=== PATIENT | female | born 1935 | race Caucasian/White ===

== ENCOUNTER → 2017-01-12 | Outpatient (CLI) | payer MEDICARE ==
[2017-01-12 08:48] LABS: CH 30.6; CHCM 33.1; HCT 48.4 % (34.0-46.0); HGB 15.5 gm/dL (11.4-16.0); MCH 29.8 pg (25.0-35.0); MCHC 32.1 g/dL (31.0-37.0); Mean Platelet Volume 7.3; RDW 14.7 % (11.5-15.5); WBC 6.6 k/uL (3.8-10.6)
[2017-01-12 09:10] LABS: ALT 33 U/L (9-52); AST 26 U/L (14-36); Alkaline Phosphatase 59 U/L (38-126); Anion Gap 7 mmol/L; Blood Urea Nitrogen 21 mg/dL (7-17); Calcium 9.3 mg/dL (8.4-10.2); Carbon Dioxide 31 mmol/L (22-30); Chloride 103 mmol/L (98-107); Cholesterol 169 mg/dL (<200); Glucose 99 mg/dL (74-99); HDL Cholesterol 67 mg/dL (40-60); Non-African American GFR(MDRD) >60 (>60 ml/min/1.73 sqM); Potassium 4.4 mmol/L (3.5-5.1); Sodium 141 mmol/L (137-145); Total Bilirubin 0.8 mg/dL (0.2-1.3); Total Protein 6.6 g/dL (6.3-8.2)
== END | disposition home or self-care (01) ==
LOC: LABWHC1 08:19
PROVIDERS: ATTEND Internal Medicine Cardiovascular Disease
DX: I10 Essential (primary) hypertension (principal); E78.5 Hyperlipidemia, unspecified; Z95.2 Presence of prosthetic heart valve
CPT/HCPCS: 36415; 80053; 80061; 84443; 85027

== ENCOUNTER → 2017-12-28 | Outpatient (CLI) | payer MEDICARE ==
[2017-12-28 09:39] LABS: HCT 49.3 % (34.0-46.0); MCH 28.4 pg (25.0-35.0); MCHC 30.4 g/dL (31.0-37.0); MCV 93.4 fL (80.0-100.0); Mean Platelet Volume 6.8; Platelet Count 275 k/uL (150-450); RBC 5.29 m/uL (3.80-5.40); RDW 13.7 % (11.5-15.5); WBC 6.3 k/uL (3.8-10.6)
[2017-12-28 09:59] LABS: ALT 26 U/L (9-52); AST 26 U/L (14-36); Anion Gap 6 mmol/L; Blood Urea Nitrogen 17 mg/dL (7-17); Calcium 9.1 mg/dL (8.4-10.2); Carbon Dioxide 32 mmol/L (22-30); Chloride 102 mmol/L (98-107); Cholesterol 177 mg/dL (<200); Glucose 97 mg/dL (74-99); HDL Cholesterol 56 mg/dL (40-60); LDL Cholesterol,Calculated 90 mg/dL (0-99); Potassium 4.7 mmol/L (3.5-5.1); Sodium 140 mmol/L (137-145); Triglycerides 153 mg/dL (<150)
== END | disposition home or self-care (01) ==
LOC: LABWHC1 08:15
PROVIDERS: ATTEND Internal Medicine Cardiovascular Disease
DX: E78.5 Hyperlipidemia, unspecified (principal); R53.83 Other fatigue; I10 Essential (primary) hypertension
CPT/HCPCS: 36415; 80048; 80061; 84443; 84450; 84460; 85027

== ENCOUNTER 2022-07-09 23:43 | Inpatient (IN) | payer MEDICARE ==
[2022-07-10 00:13] LABS: HCT 40.3 % (34.0-46.0); HGB 13.8 gm/dL (11.4-16.0); MCH 29.9 pg (25.0-35.0); MCHC 34.3 g/dL (31.0-37.0); MCV 87.1 fL (80.0-100.0); Mean Platelet Volume 7.2; Platelet Count 152 k/uL (150-450); RBC 4.63 m/uL (3.80-5.40); RDW 15.8 % (11.5-15.5); WBC 10.7 k/uL (3.8-10.6)
[2022-07-10 00:31] LABS: ALT 21 U/L (4-34); AST 26 U/L (14-36); African American GFR (CKD) >90 (>60 ml/min/1.73 sqM); Albumin 3.3 g/dL (3.5-5.0); Alkaline Phosphatase 56 U/L (38-126); Anion Gap 8 mmol/L; Blood Urea Nitrogen 20 mg/dL (7-17); Calcium 8.2 mg/dL (8.4-10.2); Carbon Dioxide 25 mmol/L (22-30); Chloride 98 mmol/L (98-107); Glucose 103 mg/dL (74-99); Lipase 38 U/L (23-300); Magnesium 1.5 mg/dL (1.6-2.3); Non-African American GFR(CKD) 79 (>60 ml/min/1.73 sqM); Potassium 3.4 mmol/L (3.5-5.1); Sodium 131 mmol/L (137-145); Total Bilirubin 1.2 mg/dL (0.2-1.3); Total Protein 5.6 g/dL (6.3-8.2)
--- NOTE | 2022-07-10 00:31 | CT ---
EXAMINATION TYPE: CT brain wo con CT DLP: 1143.1 mGycm, Automated exposure control for dose reduction was used. DATE OF EXAM: 07/10/2022 12:21 AM COMPARISON: 04/09/2010. CLINICAL INDICATION:Female, 86 years old with history of Syncope, SYNCOPE TECHNIQUE: Brain: Axial CT images of the brain were obtained with coronal and sagittal reformats created and rev iewed. Contrast used: None. Oral contrast used: None. FINDINGS: Brain: Extra-axial spaces: No abnormal extra-axial fluid collections. Ventricular system: Dilatation in proportion to cerebral atrophy. Cerebral parenchyma: Cerebral atrophy. No acute intraparenchymal hemorrhage or mass effect. The [place] -white junction is well differentiated. Scattered hypoattenuating areas are seen within the white mat ter. Cerebellum: Unremarkable. Mass effect: No evidence of midline shift. Intracranial vasculature: Atherosclerotic calcifications of the intracranial vessels. Soft tissues: Normal. Calvarium/osseous structures: No depressed skull fracture. Paranasal sinuses and mastoid air cells: Mild scattered paranasal sinus disease. Visualized orbits: Bilateral aphakia IMPRESSION: 1. No acute intracranial process. 2. Nonspecific white matter changes, likely secondary to chronic small vessel ischemic disease.
--- NOTE | 2022-07-10 00:33 | XR ---
EXAMINATION TYPE: XR chest 1V portable DATE OF EXAM: 07/10/2022 12:21 AM COMPARISON: CT 03/30/2015. 04/16/2015 radiograph TECHNIQUE: XR chest 1V portable Frontal view of the chest. CLINICAL INDICATION:Female, 86 years old with history of Syncope; FINDINGS: Lungs/Pleura: There is no evidence of pleural effusion, focal consolidation, or pneumothorax. Pulmonary vascularity: Unremarkable. Heart/mediastinum: Cardiomediastinal silhouette is unremarkable. Two lead cardiac conduction device o verlying the left hemithorax with lead tips projecting over the right ventricle and right atrium. Pro minent mediastinum compatible with prior CT findings of ascending and descending thoracic aorta promi nence. This is increased size from 2016. Some of this change may be due to technique. Musculoskeletal: No acute osseous pathology. Midline sternotomy wires are noted. IMPRESSION: 1. No acute cardiopulmonary disease/process. 2. Prominent mediastinum which has increased from 2016.
[2022-07-10 00:41] LABS: Band Neutrophils % 21 %; Monocytes # (M) 0.11 k/uL (0-1.0); Neutrophils % (M) 78 %; Nucleated Red Blood Cells 0 /100 WBC (0-0); Total Cells Counted 200
[2022-07-10 00:42] LABS: Hypersegmented Neutrophils Present
[2022-07-10 00:43] LABS: INR 1.1 (<1.2); Partial Thromboplastin Time 21.5 sec (22.0-30.0); Prothrombin Time 11.8 sec (9.0-12.0)
[2022-07-10] MEDS ORDERED: diphenhydrAMINE 50 MG/ML 1 ML VIAL IVP STA (00:46)
[2022-07-10] MEDS ORDERED: methylPREDNISolone SOD SUCCIN 125 MG in SODIUM CHLORIDE 0.9% 100 ML IVPB STA (00:46)
[2022-07-10] MEDS ORDERED: methylPREDNISolone SOD SUCCI 125 MG/2 ML VIAL IV STA (00:49)
--- NOTE | 2022-07-10 02:55 | CT ---
EXAM: CT Angiography Chest With Intravenous Contrast CLINICAL HISTORY: ITS.REASON CT Reason: SOB, r/o PE TECHNIQUE: Axial computed tomographic angiography images of the chest with intravenous contrast. CTDI is 27.47 mGy and DLP is 301.4 mGy-cm. This CT exam was performed using one or more of the following dose reduction techniques: automated exposure control, adjustment of the mA and/or kV according to patient size, and/or use of iterative reconstruction technique. MIP reconstructed images were created and reviewed. COMPARISON: CTA chest of 03/30/2015 FINDINGS: Pulmonary arteries: Unremarkable. No CT evidence of pulmonary embolism. Aorta: There is a dissection of the descending thoracic aorta with displacement of intimal calcifications. The dissection ends in the distal descending thoracic aorta without extension to involve the abdominal aorta. The false lumen is thrombosed. There is atherosclerotic disease within the true lumen of the descending thoracic aorta. There is aneurysmal dilatation of the false and true lumens of the descending thoracic aorta measuring up to 6.5 cm combined. There is a distal ascending aortic aneurysm measuring up to 6.6 cm. There is an acute kink between the aortic arch and the ascending thoracic aorta. No evidence of ascending thoracic dissection. The proximal descending aorta just distal to the left subclavian artery measures up to 3.9 cm. 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 Lungs: Unremarkable. No mass. No consolidation. Pleural space: Unremarkable. No significant effusion. No pneumothorax. Heart: Unremarkable. No cardiomegaly. No significant pericardial effusion. No evidence of RV dysfunction. Bones/joints: No acute fracture. No dislocation. Soft tissues: Unremarkable. Lymph nodes: Unremarkable. No enlarged lymph nodes. IMPRESSION: 1. 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 The false lumen is thrombosed. The true and false lumen together are dilated measuring up to 6.5 cm transverse combined. 2. Aneurysmal dilatation of the distal ascending thoracic aorta and aortic arch measuring up to 6.6 cm with an acute kink. No evidence of ascending thoracic aortic dissection. 3. No evidence of pulmonary embolism. 4. 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 Discussed with Dr. Westbrook on 07/10 02:54 (-04:00) <MYCVCSECTION> Communications: 07/10/22 02:28 Call Doctor Regarding Aortic Dissection, called Dr. Alicea on 07/10 02:28 (-04:00)
[2022-07-10 03:08] LABS: Appearance,Urine Cloudy (Clear); Bacteria,Urine Rare /hpf; Bilirubin,Urine Negative (Negative); Blood,Urine Moderate (Negative); Color,Urine Yellow; Glucose,Urine (UA) Negative (Negative); Hyaline Casts,Urine 4 /lpf (0-2); Ketones,Urine 1+ (Negative); Leukocyte Esterase,Urine Large (Negative); Mucus,Urine Rare /hpf; Nitrite,Urine Negative (Negative); PH, Urine 5.5 (5.0-8.0); Protein,Urine Trace (Negative); RBC,Urine 18 /hpf (0-5); Specific Gravity,Urine 1.032 (1.001-1.035); Squamous Epithelial Cell,Urine 8 /hpf (0-4); Urobilinogen,Urine <2.0 mg/dL (<2.0); WBC,Urine 146 /hpf (0-5)
--- NOTE | 2022-07-10 05:00 | ED ---
General Adult HPI - General Chief complaint: Recheck/Abnormal Lab/Rx Stated complaint: Syncope Time Seen by Provider: 07/09/22 23:52 Source: patient Mode of arrival: EMS Limitations: no limitations - History of Present Illness Initial comments: This is an 86-year-old female with a past medical history including hypertension, hyperlipidemia and previous aortic aneurysm repair presented to the emergency department for a syncopal episode via EMS. It was reported the patient was at home and had a syncopal episode and was found to be hypotensive by EMS. On arrival, the patient was alert, ANO 4 and did not complain of any other acute pain or complaints. It was reported that the patient did start taking Flomax for a reported kidney stone and had a syncopal episode after taking this medication. The patient denied any acute pain or distress currently and denied any symptoms. The patient denied any lightheadedness or dizziness. The patient did state that she felt slightly flushed prior to the syncopal episode at home. The patient was resting in bed comfortably and denied any nausea, vomiting, fevers and chills. - Related Data Home Medications Medication Instructions Recorded Confirmed Aspirin 1 tab PO DAILY 03/30/15 03/30/15 Calcium Carbonate/Vitamin D3 2 each PO DAILY 03/30/15 03/30/15 [Calcium 600 + Vit D Tablet] Losartan [Cozaar] 1 tab PO DAILY 03/30/15 03/30/15 Multivitamins, Thera [Theragran] 1 each PO DAILY 03/30/15 03/30/15 Simvastatin [Zocor] 1 tab PO DAILY 03/30/15 03/30/15 Sotalol [Betapace] 1 tab PO DAILY 03/30/15 03/30/15 Zolpidem [Ambien] 1 tab PO DAILY 03/30/15 03/30/15 Allergies Allergy/AdvReac Type Severity Reaction Status Date / Time Iodinated Contrast Media Allergy Rash/Hives Verified 03/30/15 05:48 [Iodinated Contrast Media - IV Dye] Review of Systems ROS Statement: Those systems with pertinent positive or pertinent negative responses have been documented in the HPI. ROS Other: All systems not noted in ROS Statement are negative. Past Medical History Past Medical History: Hyperlipidemia, Hypertension History of Any Multi-Drug Resistant Organisms: None Reported Past Surgical History: Appendectomy, Coronary Bypass/CABG, Hysterectomy, Pacemaker, Tonsillectomy Past Psychological History: No Psychological Hx Reported Smoking Status: Never smoker Past Alcohol Use History: None Reported Past Drug Use History: None Reported General Exam Limitations: no limitations General appearance: alert, in no apparent distress Head exam: Present: atraumatic, normocephalic, normal inspection Eye exam: Present: normal appearance, PERRL Pupils: Present: normal accommodation ENT exam: Present: normal exam, normal oropharynx, mucous membranes moist Neck exam: Present: normal inspection, full ROM Respiratory exam: Present: normal lung sounds bilaterally Cardiovascular Exam: Present: regular rate, normal rhythm, normal heart sounds GI/Abdominal exam: Present: soft, normal bowel sounds Extremities exam: Present: normal inspection, full ROM Back exam: Present: normal inspection, full ROM Neurological exam: Present: alert, oriented X3, CN II-XII intact Psychiatric exam: Present: normal affect, normal mood Skin exam: Present: warm, dry Course Vital Signs 07/09/22 07/10/22 07/10/22 23:46 00:00 00:34 Temperature 98.4 F Pulse Rate 83 Respiratory 18 Rate Blood Pressure 87/65 97/65 109/72 O2 Sat by Pulse 96 Oximetry 07/10/22 07/10/22 07/10/22 00:59 01:46 02:00 Temperature Pulse Rate Respiratory Rate Blood Pressure 105/71 107/73 101/73 O2 Sat by Pulse Oximetry 07/10/22 07/10/22 07/10/22 02:03 02:45 03:15 Temperature Pulse Rate 72 78 73 Respiratory 16 18 18 Rate Blood Pressure 120/74 123/73 O2 Sat by Pulse 98 96 98 Oximetry 07/10/22 07/10/22 05:00 06:15 Temperature Pulse Rate 76 60 Respiratory 16 16 Rate Blood Pressure 116/79 117/90 O2 Sat by Pulse 96 95 Oximetry EKG Findings - EKG Comments: EKG Findings:: In EKG was obtained and was interpreted by myself showing a rate of 85, QRS duration of 189 and QTC of 537. This EKG shows electronically ventricularly paced rhythm. There was however no ST segment elevation or depression noted. Medical Decision Making - Medical Decision Making Was pt. sent in by a medical professional or institution (, PA, LOCAL SUPERINTENDENT, urgent care, hospital, or group home...) When possible be specific @ -No Did you speak to anyone other than the patient for history (EMS, parent, family, police, friend...)? What history was obtained from this source @ -Yes, patient's daughter and EMS that confirmed the patient's history and syncopal episode. Did you review nursing and triage notes (agree or disagree)? Why? @ -I reviewed and agree with nursing and triage notes Were old charts reviewed (outside hosp., previous admission, EMS record, old EKG, old radiological studies, urgent care reports/EKG's, group home records)? Report findings @ -No old charts were reviewed Differential Diagnosis (chest pain, altered mental status, abdominal pain women, abdominal pain men, vaginal bleeding, weakness, fever, dyspnea, syncope, headache, dizziness, GI bleed, back pain, seizure, CVA, palpatations, mental health)? @ -ACS, PE, pneumonia, URI EKG interpreted by me (3pts min.). @ -As above X-rays interpreted by me (1pt min.). @ -Chest x-ray was obtained and was interpreted by myself showing no acute cardiopulmonary process however there is a prominent mediastinum which was increased from 2016. CT interpreted by me (1pt min.). @ -Head CT was initially obtained due to the patient's syncopal episode and was interpreted by myself showing no acute intracranial process. There was nonspecific white matter changes likely secondary to chronic small vessel ischemic disease. Due to the patient's elevated d-dimer level, a CTA of the chest was obtained. CT of the chest was reviewed and interpreted by myself showing a descending thoracic aortic dissection with a false lumen thrombosed. The true and false lumen together are dilated measuring up to 6.5 cm. There was also an aneurysmal dilated patient of the distal ascending thoracic aorta and aortic arch measuring up to 6.6 cm. There was no evidence of ascending thoracic aortic dissection. There was no PE. U/S interpreted by me (1pt. min.). @ -None done What testing was considered but not performed or refused? (CT, X-rays, U/S, labs)? Why? @ -None What meds were considered but not given or refused? Why? @ -None Did you discuss the management of the patient with other professionals (professionals i.e. , PA, LOCAL SUPERINTENDENT, lab, RT, psych nurse, web content & social media manager, cork painter and grader, teacher, chairman president and chief executive officer, case coordinator)? Give summary @ -Yes, multiple physicians were contacted. Please see the below hospital course for details. Was smoking cessation discussed for >3mins.? @ -No Was critical care preformed (if so, how long)? @ -Yes, see above Were there social determinants of health that impacted care today? How? (Homelessness, low income, unemployed, alcoholism, drug addiction, transportation, low edu. Level, literacy, decrease access to med. care, senior living, rehab)? @ -No Was there de-escalation of care discussed even if they declined (Discuss DNR or withdrawal of care, Hospice)? DNR status @ -No What co-morbidities impacted this encounter? (DM, HTN, Smoking, COPD, CAD, C ancer, CVA, ARF, Chemo, Hep., AIDS, mental health diagnosis, sleep apnea, morbid obesity)? @ -Hypertension, hyperlipidemia and previous aortic aneurysm with repair Was patient admitted / discharged? Hospital course, mention meds given and route, prescriptions, significant lab abnormalities, going to OR and other pertinent info. @ -The patient was seen and evaluated in the emergency department. On evaluation, the patient was resting in bed without any acute distress. Vital signs on admission were stable. The patient did have mild hypotension on arrival but responded well to 500 mL of IV fluids. The patient continued to remain stable. Laboratory workup was obtained that showed a significant elevation of the d-dimer at 19 and therefore a CTA of the chest was ordered. Urinalysis was consistent with a UTI and blood consistent with the patient's already confirmed kidney stone. The CT of the chest showed significant findings including a descending thoracic aortic dissection that measured up to 6.5 cm and was thrombosed. An ascending aortic aneurysm was also noted 6.600 m. Due to this, vascular surgery was contacted and Dr. Wolff stated that the patient would need to be transferred. Due to this, transfer was initiated. The patient was denied from [facility] as well as [facility] due to capacity. The [facility] was contacted and I did speak to Dr. Ballesteros and Dr. Tena regarding the patient. I did send the images to the cardiac thoracic surgeon at the [facility]. He reviewed them and stated that the patient due to her age was not a surgical candidate and would instead recommend medical management. He did state that there was no need to transfer the patient at this time. The patient and her family were told of this but did state that her excavator backhoe operator was at [facility] and did request to be transferred there. Phone calls were made to transfer the patient to [facility] however it was stated that because the patient does have a known dissection, the patient is an automatic denial as [facility] could not accept any patient with a dissection regardless of the type. The patient's family was again told of this and they were agreeable to staying here and be admitted for medical management with cardiology on consult. The patient's blood pressure remain stable did not require any doses of blood pressure medications. The patient was admitted in stable condition with cardiology on consult. Undiagnosed new problem with uncertain prognosis? @ -No Drug Therapy requiring intensive monitoring for toxicity (Heparin, Nitro, Insulin, Cardizem)? @ -No Were any procedures done? @ -No Diagnosis/symptom? @ -Descending thoracic aortic dissection, ascending thoracic aortic aneurysm, medical management Acute, or Chronic, or Acute on Chronic? @ -Acute on chronic Uncomplicated (without systemic symptoms) or Complicated (systemic symptoms)? @ -Complicated Side effects of treatment? @ -No Exacerbation, Progression, or Severe Exacerbation? @ -No Poses a threat to life or bodily function? How? (Chest pain, [place], [place], pneumonia, PE, COPD, DKA, ARF, appy, cholecystitis, CVA, Diverticulitis, Homicidal, Suicidal, threat to staff... and all critical care pts) @ -Yes, dissection and aneurysm can lead to rupture and immediate . - Lab Data Result diagrams: 07/09/22 23:59 07/09/22 23:59 Lab Results 07/09/22 07/09/22 07/09/22 Range/Units 23:59 23:59 23:59 WBC 10.7 H (3.8-10.6) k/uL RBC 4.63 (3.80-5.40) m/uL Hgb 13.8 (11.4-16.0) gm/dL Hct 40.3 (34.0-46.0) % MCV 87.1 (80.0-100.0) fL MCH 29.9 (25.0-35.0) pg MCHC 34.3 (31.0-37.0) g/dL RDW 15.8 H (11.5-15.5) % Plt Count 152 (150-450) k/uL MPV 7.2 Neutrophils % (Manual) 78 % Band Neuts % (Manual) 21 % Monocytes % (Manual) 1 % Neutrophils # (Manual) 10.50 H (1.3-7.7) k/uL Monocytes # (Manual) 0.11 (0-1.0) k/uL Nucleated RBCs 0 (0-0) /100 WBC Manual Slide Review Performed Hypersegmented Neuts Present PT 11.8 (9.0-12.0) sec INR 1.1 (<1.2) APTT 21.5 L (22.0-30.0) sec D-Dimer 19.25 H (<0.60) mg/L FEU Sodium 131 L (137-145) mmol/L Potassium 3.4 L (3.5-5.1) mmol/L Chloride 98 (98-107) mmol/L Carbon Dioxide 25 (22-30) mmol/L Anion Gap 8 mmol/L BUN 20 H (7-17) mg/dL Creatinine 0.68 (0.52-1.04) mg/dL Est GFR (CKD-EPI)AfAm >90 (>60 ml/min/1.73 sqM) Est GFR (CKD-EPI)NonAf 79 (>60 ml/min/1.73 sqM) Glucose 103 H (74-99) mg/dL Calcium 8.2 L (8.4-10.2) mg/dL Magnesium 1.5 L (1.6-2.3) mg/dL Total Bilirubin 1.2 (0.2-1.3) mg/dL AST 26 (14-36) U/L ALT 21 (4-34) U/L Alkaline Phosphatase 56 (38-126) U/L Troponin I (0.000-0.034) ng/mL Total Protein 5.6 L (6.3-8.2) g/dL Albumin 3.3 L (3.5-5.0) g/dL Lipase 38 (23-300) U/L Urine Color Urine Appearance (Clear) Urine pH (5.0-8.0) Ur Specific [place] (1.001-1.035) Urine Protein (Negative) Urine Glucose (UA) (Negative) Urine Ketones (Negative) Urine Blood (Negative) Urine Nitrite (Negative) Urine Bilirubin (Negative) Urine Urobilinogen (<2.0) mg/dL Ur Leukocyte Esterase (Negative) Urine RBC (0-5) /hpf Urine WBC (0-5) /hpf Urine WBC Clumps (None) /hpf Ur Squamous Epith Cells (0-4) /hpf Urine Bacteria (None) /hpf Hyaline Casts (0-2) /lpf Urine Mucus (None) /hpf 07/09/22 07/10/22 Range/Units 23:59 02:29 WBC (3.8-10.6) k/uL RBC (3.80-5.40) m/uL Hgb (11.4-16.0) gm/dL Hct (34.0-46.0) % MCV (80.0-100.0) fL MCH (25.0-35.0) pg MCHC (31.0-37.0) g/dL RDW (11.5-15.5) % Plt Count (150-450) k/uL MPV Neutrophils % (Manual) % Band Neuts % (Manual) % Monocytes % (Manual) % Neutrophils # (Manual) (1.3-7.7) k/uL Monocytes # (Manual) (0-1.0) k/uL Nucleated RBCs (0-0) /100 WBC Manual Slide Review Hypersegmented Neuts PT (9.0-12.0) sec INR (<1.2) APTT (22.0-30.0) sec D-Dimer (<0.60) mg/L FEU Sodium (137-145) mmol/L Potassium (3.5-5.1) mmol/L Chloride (98-107) mmol/L Carbon Dioxide (22-30) mmol/L Anion Gap mmol/L BUN (7-17) mg/dL Creatinine (0.52-1.04) mg/dL Est GFR (CKD-EPI)AfAm (>60 ml/min/1.73 sqM) Est GFR (CKD-EPI)NonAf (>60 ml/min/1.73 sqM) Glucose (74-99) mg/dL Calcium (8.4-10.2) mg/dL Magnesium (1.6-2.3) mg/dL Total Bilirubin (0.2-1.3) mg/dL AST (14-36) U/L ALT (4-34) U/L Alkaline Phosphatase (38-126) U/L Troponin I 0.025 (0.000-0.034) ng/mL Total Protein (6.3-8.2) g/dL Albumin (3.5-5.0) g/dL Lipase (23-300) U/L Urine Color Yellow Urine Appearance Cloudy H (Clear) Urine pH 5.5 (5.0-8.0) Ur Specific [place] 1.032 (1.001-1.035) Urine Protein Trace H (Negative) Urine Glucose (UA) Negative (Negative) Urine Ketones 1+ H (Negative) Urine Blood Moderate H (Negative) Urine Nitrite Negative (Negative) Urine Bilirubin Negative (Negative) Urine Urobilinogen <2.0 (<2.0) mg/dL Ur Leukocyte Esterase Large H (Negative) Urine RBC 18 H (0-5) /hpf Urine WBC 146 H (0-5) /hpf Urine WBC Clumps Few H (None) /hpf Ur Squamous Epith Cells 8 H (0-4) /hpf Urine Bacteria Rare H (None) /hpf Hyaline Casts 4 H (0-2) /lpf Urine Mucus Rare H (None) /hpf Critical Care Time Critical Care Time: Yes Total Critical Care Time: 75 Disposition Clinical Impression: Ascending aortic aneurysm, Descending thoracic aortic dissection Disposition: ADMITTED IP TO THIS [facility] Condition: Stable Is patient prescribed a controlled substance at d/c from ED?: No Time of Disposition: 05:00 Decision to Admit Reason: Admit from EC Decision Date: 07/10/22 Decision Time: 05:00
[2022-07-10] MEDS ORDERED: NALOXONE 0.4 MG/ML 1 ML VIAL IV PRN (05:21)
[2022-07-10] MEDS ORDERED: cefTRIAXone IN SWFI 1,000 MG/10 ML SYRINGE IVP STA (07:03)
--- NOTE | 2022-07-10 13:01 | P.HPIM ---
History of Present Illness H&P Date: 07/10/22 Destiny Meléndez, is an 86-year-old female who presented to [facility] emergency room after having a syncopal episode, per emergency room report, patient had syncope at home, EMS were called and patient was hypotensive. She was evaluated in the emergency room vital examination on presentation revealed a temperature of 98.4 pulse 83 respiration 18 blood pressure 87/65 pulse ox 96% on 3 L nasal cannula Laboratory data revealed a white blood count of 10.7 hemoglobin 13.8 platelet count 152 d-dimer 19.5 sodium 131 potassium 3.4 BUN 20 creatinine 0.68 urine analysis revealed evidence of urinary tract infection Testing in the emergency room revealed computed tomography scan of the brain was done without contrast in the emergency room and revealed no acute intracranial process, and nonspecific white matter changes likely secondary to chronic small vessel ischemic disease, chest x-ray was done in the emergency room and revealed no acute cardiopulmonary process, and prominent mediastinal. CT angiogram of the chest was done in emergency room and revealed no evidence of pulmonary embolism however there was evidence of descending thoracic Aortic dissection, which is new from prior study and the false lumen is thrombosed and aneurysmally dilated Tatian of the distal ascending thoracic aorta and aortic arch measuring up to 6.6 cm. Emergency room physician attempted to transfer patient to [facility], computed tomography scan pictures were transmitted to [facility], however they advised that there is no need for any surgical intervention, and patient should be treated medically, emergency room physician also attempted to transfer patient to [facility] where she is known to the cardiology team, however [facility] declined to transfer, and patient will be admitted to our hospital with cardiology consultation, family is aware of condition and are agreeable to admission to our hospital. Patient was admitted to telemetry floor for further evaluation and treatment Past medical history is significant for history of hypertension, history of hyperlipidemia, previous history of aortic aneurysm repair, underlying history of coronary artery disease with history of coronary artery bypass graft surgery, underlying history of cardiac arrhythmia was previous history of pacemaker placement recent diagnosis of herpes zoster, on the face, patient completed her course of Valtrex, recent diagnosis of urinary tract infection with kidney ston e, patient was recently started on Cipro and Flomax. Patient daughter at the bedside stated that patient had the syncopal episode one hour after receiving Flomax. On review of systems at this time patient is alert and oriented 3 in no apparent distress there is no fever or chills no headache or dizziness no chest pain no shortness of breath no cough no nausea or vomiting no abdominal pain no diarrhea no blood in the stools no burning with urination no frequency or urgency and no hematuria, there is no weakness or numbness in any of the extremities, there is no change in vision speech or gait per patient. Past Medical History Past Medical History: Hyperlipidemia, Hypertension History of Any Multi-Drug Resistant Organisms: None Reported Past Surgical History: Appendectomy, Coronary Bypass/CABG, Hysterectomy, Pacemaker, Tonsillectomy Past Psychological History: No Psychological Hx Reported Smoking Status: Never smoker Past Alcohol Use History: None Reported Past Drug Use History: None Reported Medications and Allergies Home Medications Medication Instructions Recorded Confirmed Type Aspirin 1 tab PO DAILY 03/30/15 03/30/15 History Calcium Carbonate/Vitamin D3 2 each PO DAILY 03/30/15 03/30/15 History [Calcium 600 + Vit D Tablet] Losartan [Cozaar] 1 tab PO DAILY 03/30/15 03/30/15 History Multivitamins, Thera [Theragran] 1 each PO DAILY 03/30/15 03/30/15 History Simvastatin [Zocor] 1 tab PO DAILY 03/30/15 03/30/15 History Sotalol [Betapace] 1 tab PO DAILY 03/30/15 03/30/15 History Zolpidem [Ambien] 1 tab PO DAILY 03/30/15 03/30/15 History Allergies Allergy/AdvReac Type Severity Reaction Status Date / Time Iodinated Contrast Media Allergy Rash/Hives Verified 03/30/15 05:48 [Iodinated Contrast Media - IV Dye] Physical Exam Vitals: Vital Signs Temp Pulse Resp BP Pulse Ox 07/10/22 11:25 60 16 109/69 93 L 07/10/22 09:48 60 16 100/57 93 L 07/10/22 08:37 60 18 98/70 94 L 07/10/22 07:38 59 L 16 96/61 93 L 07/10/22 07:26 60 18 95/65 98 07/10/22 06:15 60 16 117/90 95 07/10/22 05:00 76 16 116/79 96 07/10/22 03:15 73 18 123/73 98 07/10/22 02:45 78 18 120/74 96 07/10/22 02:03 72 16 98 07/10/22 02:00 101/73 07/10/22 01:46 107/73 07/10/22 00:59 105/71 07/10/22 00:34 109/72 07/10/22 00:00 97/65 07/09/22 23:46 98.4 F 83 18 87/65 96 Intake and Output 07/09/22 07/10/22 07/10/22 22:59 06:59 14:59 Other: Weight 49.895 kg In general patient is alert and oriented x 3 in no distress HEENT head normocephalic and atraumatic Neck is supple no JVD no goiter no lymphadenopathy no carotid bruit Chest examination is clear to auscultation no crackles no wheezing Cardiac exam reveals regular heart sounds S1 and S2 no gallops, there is a 2/6 systolic murmur best heard in the left sternal border Abdomen is soft nontender no organomegaly with normal bowel sounds Extremity exam reveals no edema no cyanosis or clubbing Neurological examination reveals no gross focal deficits Results CBC & Chem 7: 07/09/22 23:59 07/09/22 23:59 Labs: Abnormal Lab Results - Last 24 Hours (Table) 07/09/22 07/09/22 07/09/22 Range/Units 23:59 23:59 23:59 WBC 10.7 H (3.8-10.6) k/uL RDW 15.8 H (11.5-15.5) % Neutrophils # (Manual) 10.50 H (1.3-7.7) k/uL APTT 21.5 L (22.0-30.0) sec D-Dimer 19.25 H (<0.60) mg/L FEU Sodium 131 L (137-145) mmol/L Potassium 3.4 L (3.5-5.1) mmol/L BUN 20 H (7-17) mg/dL Glucose 103 H (74-99) mg/dL Calcium 8.2 L (8.4-10.2) mg/dL Magnesium 1.5 L (1.6-2.3) mg/dL Total Protein 5.6 L (6.3-8.2) g/dL Albumin 3.3 L (3.5-5.0) g/dL Urine Appearance (Clear) Urine Protein (Negative) Urine Ketones (Negative) Urine Blood (Negative) Ur Leukocyte Esterase (Negative) Urine RBC (0-5) /hpf Urine WBC (0-5) /hpf Urine WBC Clumps (None) /hpf Ur Squamous Epith Cells (0-4) /hpf Urine Bacteria (None) /hpf Hyaline Casts (0-2) /lpf Urine Mucus (None) /hpf 07/10/22 Range/Units 02:29 WBC (3.8-10.6) k/uL RDW (11.5-15.5) % Neutrophils # (Manual) (1.3-7.7) k/uL APTT (22.0-30.0) sec D-Dimer (<0.60) mg/L FEU Sodium (137-145) mmol/L Potassium (3.5-5.1) mmol/L BUN (7-17) mg/dL Glucose (74-99) mg/dL Calcium (8.4-10.2) mg/dL Magnesium (1.6-2.3) mg/dL Total Protein (6.3-8.2) g/dL Albumin (3.5-5.0) g/dL Urine Appearance Cloudy H (Clear) Urine Protein Trace H (Negative) Urine Ketones 1+ H (Negative) Urine Blood Moderate H (Negative) Ur Leukocyte Esterase Large H (Negative) Urine RBC 18 H (0-5) /hpf Urine WBC 146 H (0-5) /hpf Urine WBC Clumps Few H (None) /hpf Ur Squamous Epith Cells 8 H (0-4) /hpf Urine Bacteria Rare H (None) /hpf Hyaline Casts 4 H (0-2) /lpf Urine Mucus Rare H (None) /hpf Assessment and Plan Plan: Episode of syncope, lasting about 45 seconds Evidence of descending thoracic aortic dissection which is new from prior study and evidence of aneurysmal bilateral patient of the distal ascending aorta Evidence of urinary tract infection Recent diagnosis of kidney stone patient was started on oral Flomax as outpatient Known history of hypertension Known history of hyperlipidemia Previous history of aortic aneurysm repair Underlying history of coronary artery disease with history of coronary artery bypass graft surgery Underlying history of cardiac arrhythmia with history of pacemaker placement At this time patient was seen and examined She will be admitted to telemetry floor Cardiology consultation was requested Echocardiogram and carotid Doppler were ordered for urinary tract infection patient will be started on IV ceftriaxone Urine culture ordered Will check kidney ultrasound to assess recent diagnosis of kidney stones Will follow closely
--- NOTE | 2022-07-10 13:13 | US ---
EXAMINATION TYPE: US carotid duplex BILAT DATE OF EXAM: 07/10/2022 COMPARISON: NONE CLINICAL INDICATION: Female, 86 years old with history of syncope; Weakness, syncope TECHNIQUE: Carotid duplex ultrasound examination. Indirect Doppler criteria was utilized. FINDINGS: EXAM MEASUREMENTS: RIGHT: Peak Systolic Velocity (PSV) cm/sec ----- Right CCA: 35.5 ----- Right ICA: 40.5 ----- Right ECA: 58.4 ICA/CCA ratio: 1.1 RIGHT: End Diastole cm/sec ----- Right CCA: 7.8 ----- Right ICA: 14.9 ----- Right ECA: 5.1 LEFT: Peak Systolic Velocity (PSV) cm/sec ----- Left CCA: 39.1 ----- Left ICA: 56.2 ----- Left ECA: 57.6 ICA/CCA ratio: 1.4 LEFT: End Diastole cm/sec ----- Left CCA: 10.6 ----- Left ICA: 21.3 ----- Left ECA: 0.0 VERTEBRALS (direction of flow): Right Vertebral: Antegrade Left Vertebral: Antegrade Rhythm: Normal DIALYSIS NURSE NOTES: No significant stenosis seen Mild atherosclerotic plaque within both carotid bulbs. IMPRESSION: No ultrasound evidence for hemodynamically significant stenosis of the bilateral internal carotid art eries. Criteria for Assigning % of Stenosis / Diameter reduction (Estimation based on the indirect measurements of the internal carotid artery velocities (ICA PSV). 1. Normal (no stenosis)=ICA PSV < 125 cm/s: ratio < 2.0: ICA EDV<40 cm/s. 2. Less than 50% stenosis=ICA PSV < 125 cm/s: ratio < 2.0: ICA EDV<40 cm/s. 3. 50 to 69% stenosis=ICA PSV of 125 to 230 cm/s: ration 2.0 ? 4.0: ICA EDV 40-100 cm/s. 4. Greater than 70% stenosis to near occlusion= ICA PSV > 230 cm/s: ratio > 4.0: ICA EDV > 100 cm/s. 5. Near occlusion= ICA PSV velocities may be low or undetectable: variable ratio and ICA EDV. 6. Total occlusion=unable to detect flow.
--- NOTE | 2022-07-10 15:46 | US ---
EXAMINATION TYPE: US kidneys/renal and bladder DATE OF EXAM: 07/10/2022 COMPARISON: NONE CLINICAL INDICATION: Female, 86 years old with history of kidney stones; Right flank pain EXAM MEASUREMENTS: Right Kidney: 11.9 x 4.9 x 4.8 cm Left Kidney: 10.9 x 5.3 x 4.5 cm Right Kidney: Mild right hydronephrosis versus pelviectasis. No shadowing renal calculi. Normal corti adam medullary differentiation. Left Kidney: No evidence of hydronephrosis. No shadowing renal calculi. Normal cortical medullary dif ferentiation. Bladder: Underdistended but within normal limits. Bilateral Jets seen: No IMPRESSION: Mild right hydronephrosis versus pelviectasis.
--- NOTE | 2022-07-10 15:58 | P.CRDCN ---
History of Present Illness History of present illness: HISTORY OF PRESENTING ILLNESS Patient is a pleasant 86-year-old female with a history of hypertension, hyperlipidemia, aortic aneurysm status post prior aortic aneurysm repair which has been monitored by Dr. Leavitt. Unfortunately she had shingles involving her left eye and had been taking Valtrex and had slowly been getting over the Valtrex however third-degree developed lower abdominal pain. She was prescribed antibiotics, Motrin for a kidney stone. She started having worsening episode of nausea, upset stomach and feeling somewhat lightheaded. Daughter had checked blood pressure was in the 80s over 50s which normally isn't more in the 110s. Family urged her to go to the emergency department however in the meantime she gone to the bathroom and had a syncopal episode. She was unresponsive sitting up in the bathroom and daughter who is a nurse felt this was likely vasovagal e pisode and brought her to the floor and patient slowly came to within 30-40 seconds. Patient brought to the emergency department and CT brain showed no acute process, CTA thorax showed descending thoracic aortic dissection with 2 and pulse lumen measuring 6.5 cm as well as a aortic arch aneurysm 6.6 cm. There is mention of a kink in the ascending aorta. 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 EKG showed sinus rhythm with ventricular paced rhythm. REVIEW OF SYSTEMS At the time of my exam: CONSTITUTIONAL: Denies fever or chills. CARDIOVASCULAR: Denies chest pain, shortness of breath, orthopnea, PND or palpitations. RESPIRATORY: Denies cough. GASTROINTESTINAL: Denies abdominal pain, diarrhea, constipation, nausea or vomiting. MUSCULOSKELETAL: Denies myalgias. NEUROLOGIC: Denies numbness, tingling or weakness. ENDOCRINE: Denies fatigue, weight change, polydipsia or polyurina. GENITOURINARY: Denies burning, hematuria or urgency with micturation. HEMATOLOGIC: Denies history of anemia or bleeding. PHYSICAL EXAMINATION Vital signs reviewed. CONSTITUTIONAL: No apparent distress. HEENT: Head is normocephalic. Pupils are equal, round. Sclerae anicteric. Mucous membranes of the mouth are moist. No JVD. No carotid bruit. CHEST EXAMINATION: Lungs are clear to auscultation. No chest wall tenderness is noted on palpation or with deep breathing. HEART EXAMINATION: Regular rate and rhythm. S1, S2 heard. No murmurs, gallops or rub. ABDOMEN: Soft, nontender. Positive bowel sounds. EXTREMITIES: 2+ peripheral pulses, no lower extremity edema and no calf tenderness. NEUROLOGIC EXAMINATION: Patient is awake, alert and oriented x3. ASSESSMENT 1. Syncope, likely vasovagal with patient on the toilet and in pain 2. Hypotension, possibly related to dissection 3. Descending aortic dissection, type B 4. History of aortic aneurysm with prior aortic aneurysm repair 5. Status post permanent pacemaker PLAN Check 2-D echo to evaluate left ventricular function and rule out any complications from aneurysm/dissection such as aortic regurgitation. Currently patient appears fairly stable. Recommend vascular evaluation for further management of aortic aneurysm and dissection. Aggressive blood pressure control however has been borderline hypotensive. Continue supportive care, prognosis guarded. Obtain prior records from [facility]. Past Medical History Past Medical History: Hyperlipidemia, Hypertension History of Any Multi-Drug Resistant Organisms: None Reported Past Surgical History: Appendectomy, Coronary Bypass/CABG, Hysterectomy, P acemaker, Tonsillectomy Past Psychological History: No Psychological Hx Reported Smoking Status: Never smoker Past Alcohol Use History: None Reported Past Drug Use History: None Reported Medications and Allergies Home Medications Medication Instructions Recorded Confirmed Type Simvastatin [Zocor] 20 mg PO HS 03/30/15 07/10/22 History Sotalol [Betapace] 120 mg PO DAILY 03/30/15 07/10/22 History Ciprofloxacin HCl [Cipro] 500 mg PO BID 07/10/22 07/10/22 History Ibuprofen [Motrin] 800 mg PO Q8H PRN 07/10/22 07/10/22 History Latanoprost Ophth [Xalatan 0.005%] 1 drop BOTH EYES HS 07/10/22 07/10/22 History Losartan Potassium 100 mg PO DAILY 07/10/22 07/10/22 History Sotalol [Betapace] 80 mg PO HS 07/10/22 07/10/22 History Tamsulosin HCl [Flomax] 0.4 mg PO DAILY 07/10/22 07/10/22 History Vit C/E/Zn/Coppr/Lutein/Zeaxan 1 cap PO BID 07/10/22 07/10/22 History [Preservision Areds 2 Softgel] amLODIPine [Norvasc] 5 mg PO HS 07/10/22 07/10/22 History Allergies Allergy/AdvReac Type Severity Reaction Status Date / Time Iodinated Contrast Media Allergy Rash/Hives Verified 07/10/22 14:15 [Iodinated Contrast Media - IV Dye] lisinopril AdvReac Cough Verified 07/10/22 14:15 Physical Exam Vitals: Vital Signs Temp Pulse Resp BP Pulse Ox 07/10/22 13:24 60 18 102/61 94 L 07/10/22 11:25 60 16 109/69 93 L 07/10/22 09:48 60 16 100/57 93 L 07/10/22 08:37 60 18 98/70 94 L 07/10/22 07:38 59 L 16 96/61 93 L 07/10/22 07:26 60 18 95/65 98 07/10/22 06:15 60 16 117/90 95 07/10/22 05:00 76 16 116/79 96 07/10/22 03:15 73 18 123/73 98 07/10/22 02:45 78 18 120/74 96 07/10/22 02:03 72 16 98 07/10/22 02:00 101/73 07/10/22 01:46 107/73 07/10/22 00:59 105/71 07/10/22 00:34 109/72 07/10/22 00:00 97/65 07/09/22 23:46 98.4 F 83 18 87/65 96 Intake and Output 07/10/22 07/10/22 07/10/22 06:59 14:59 22:59 Other: Weight 49.895 kg Results 07/09/22 23:59 07/09/22 23:59 Cardiac Enzymes 07/09/22 07/09/22 Range/Units 23:59 23:59 AST 26 (14-36) U/L Troponin I 0.025 (0.000-0.034) ng/mL Coagulation 07/09/22 Range/Units 23:59 PT 11.8 (9.0-12.0) sec APTT 21.5 L (22.0-30.0) sec CBC 07/09/22 Range/Units 23:59 WBC 10.7 H (3.8-10.6) k/uL RBC 4.63 (3.80-5.40) m/uL Hgb 13.8 (11.4-16.0) gm/dL Hct 40.3 (34.0-46.0) % Plt Count 152 (150-450) k/uL Comprehensive Metabolic Panel 07/09/22 Range/Units 23:59 Sodium 131 L (137-145) mmol/L Potassium 3.4 L (3.5-5.1) mmol/L Chloride 98 (98-107) mmol/L Carbon Dioxide 25 (22-30) mmol/L BUN 20 H (7-17) mg/dL Creatinine 0.68 (0.52-1.04) mg/dL Glucose 103 H (74-99) mg/dL Calcium 8.2 L (8.4-10.2) mg/dL AST 26 (14-36) U/L ALT 21 (4-34) U/L Alkaline Phosphatase 56 (38-126) U/L Total Protein 5.6 L (6.3-8.2) g/dL Albumin 3.3 L (3.5-5.0) g/dL Current Medications Generic Name Dose Route Start Last Admin Trade Name Freq PRN Reason Stop Dose Admin Ceftriaxone Sodium 1 gm/ 50 mls @ 100 mls/hr 07/11/22 09:00 Sodium Chloride IVPB Q24HR SRIDHAR Protocol Naloxone HCl 0.2 mg 07/10/22 05:21 Naloxone 0.4 Mg/Ml 1 Ml Vial IV Q2M PRN Opioid Reversal Intake and Output 07/10/22 07/10/22 07/10/22 06:59 14:59 22:59 Other: Weight 49.895 kg 07/09/22 23:59 07/09/22 23:59
[2022-07-10] MEDS ORDERED: IBUPROFEN 800 MG TAB PO PRN (18:35)
[2022-07-10] MEDS ORDERED: Potassium Replacement Protocol 1 EACH MISC MISCELLANE PRN (18:36)
[2022-07-10] MEDS ORDERED: Magnesium Replacement Protocol 1 EACH MISC MISCELLANE PRN (18:36)
[2022-07-10 18:47] LABS: HGB 12.4 gm/dL (11.4-16.0); MCH 29.7 pg (25.0-35.0); MCHC 33.5 g/dL (31.0-37.0); MCV 88.8 fL (80.0-100.0); Mean Platelet Volume 7.6; Platelet Count 151 k/uL (150-450); RBC 4.16 m/uL (3.80-5.40); RDW 15.7 % (11.5-15.5); WBC 24.9 k/uL (3.8-10.6)
[2022-07-10 18:55] LABS: Albumin 3.2 g/dL (3.5-5.0); Calcium 8.2 mg/dL (8.4-10.2); Magnesium 1.7 mg/dL (1.6-2.3); Potassium 3.6 mmol/L (3.5-5.1); Total Bilirubin 0.7 mg/dL (0.2-1.3); Total Protein 5.6 g/dL (6.3-8.2)
[2022-07-10] MEDS: SOTALOL 80 MG TAB PO SCH (20:43)
[2022-07-10] MEDS: ATORVASTATIN 10 MG TAB PO SCH (20:43)
[2022-07-10] MEDS: LATANOPROST 0.005% OPHTH DROPS 2.5 ML BTL BOTH EYES SCH (20:43)
[2022-07-10] MEDS: MULTIVITAMINS, THERA 1 EACH TAB PO SCH (20:43)
[2022-07-11] MEDS: MULTIVITAMINS, THERA 1 EACH TAB PO SCH ×2 (07:58→20:00)
[2022-07-11] MEDS: SOTALOL 120 MG TAB PO SCH (07:58)
--- NOTE | 2022-07-11 09:58 | CA ---
Transthoracic Echo Report Name: Destiny Meléndez Age: 86 Gender: F : 1935 Exam Date: 07/10/2022 14:16 Exam Location: [facility] Ht (in): 70 Wt (lb): 110 Ordering Physician: Gary Song MD Attending/Referring Phys: Coordinate Measuring Machine Programmer Gayathri Miller RDCS Procedure CPT: Indications: Syncope Cardiac Hx: Technical Quality: Fair Contrast 1: Total Dose (mL): Contrast 2: Total Dose (mL): MEASUREMENTS (Male / Female) Normal Values 2D ECHO LV Diastolic Diameter PLAX 2.7 cm 4.2 - 5.9 / 3.9 - 5.3 cm LV Systolic Diameter PLAX 1.9 cm IVS Diastolic Thickness 1.8 cm 0.6 - 1.0 / 0.6 - 0.9 cm LVPW Diastolic Thickness 1.5 cm 0.6 - 1.0 / 0.6 - 0.9 cm LV Relative Wall Thickness 1.2 RV Internal Dim ED PLAX 3.3 cm LVOT Diameter 1.9 cm LA Volume 65.2 cm??? 18 - 58 / 22 - 52 cm??? M-MODE Aortic Root Diameter MM 3.4 cm AV Cusp Separation MM 1.1 cm DOPPLER AV Peak Velocity 286.1 cm/s AV Peak Gradient 32.7 mmHg AV Mean Velocity 202.5 cm/s AV Mean Gradient 18.2 mmHg AV Velocity Time Integral 56.3 cm LVOT Peak Velocity 222.3 cm/s LVOT Peak Gradient 19.8 mmHg LVOT Velocity Time Integral 40.0 cm LVOT Stroke Volume 112.1 cm??? LVOT Stroke Volume Index 69.3 ml/m??? LVOT Cardiac Index 4343.2 cm???/min???m??? AV Area Cont Eq vti 2.0 cm??? AV Area Cont Eq pk 2.2 cm??? TR Peak Velocity 302.9 cm/s TR Peak Gradient 36.7 mmHg Right Atrial Pressure 20.0 mmHg Pulmonary Artery Systolic Pressu 56.7 mmHg Right Ventricular Systolic Press 56.7 mmHg FINDINGS Left Ventricle Severely increased left ventricular wall thickness. Normal left ventricular systolic function with no obvious regional wall motion abnormalities. Left ventricular ejection fraction is estimated at 55-60 %. Right Ventricle Normal right ventricular size and function. Moderate pulmonary hypertension. Right ventricular systolic pressure estimated at 57 mm hg. Right Atrium Normal right atrial size. Catheter/pacemaker wire in the right atrial cavity. Left Atrium Moderately increased left atrial volume. Mildly increased left atrial area. Mitral Valve Mild mitral annular calcification. Mild mitral regurgitation. Aortic Valve Moderate aortic stenosis with a peak gradient of 33 mmHg and a mean gradient of 18 mmHg. Tricuspid Valve Structurally normal tricuspid valve. Moderate tricuspid regurgitation. Pulmonic Valve Trace pulmonic regurgitation. Pericardium No pericardial effusion. Aorta Mildly dilated proximal ascending aorta 4 cm. CONCLUSIONS Left ventricular ejection fraction 55-60% Severe increased left ventricular wall thickness RVSP 57 Moderately dilated left atrium Mild mitral regurgitation Moderate aortic stenosis with some degree of paradoxical low-flow low gradient Moderate tricuspid regurgitation Previewed by: Dr. Edwar Benavidez DO (Electronically Signed) Final Date: 11 July 2022 09:58
[2022-07-11 10:00] LABS: Anisocytosis Slight; Basophils % (A) 0 %; Eosinophils % (A) 0 %; HCT 40.7 % (34.0-46.0); HGB 13.6 gm/dL (11.4-16.0); Lymphocytes % (A) 5 %; MCH 29.6 pg (25.0-35.0); MCHC 33.5 g/dL (31.0-37.0); MCV 88.3 fL (80.0-100.0); Mean Platelet Volume 8.6; Monocytes # (A) 0.7 k/uL (0-1.0); Monocytes % (A) 4 %; Neutrophils # (A) 17.3 k/uL (1.3-7.7); Neutrophils % (A) 90 %; Platelet Count 162 k/uL (150-450); RBC 4.61 m/uL (3.80-5.40); RDW 16.2 % (11.5-15.5); WBC 19.1 k/uL (3.8-10.6)
--- NOTE | 2022-07-11 10:10 | P.GSCN ---
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 At the time in the ER, attempts were made for transfer however she was found to be not in any acute distress therefore transfer was denied by proceeding hospital. She was admitted here. We have been on Consult is for this. She has a history of hypertension, hyperlipidemia, previous ascending aortic aneurysm repair. She also recently had episodes of shingles and has been taking medication for this. She had a kidney stone but she was passing and due to worsening nausea is 70 and feeling lightheaded along with having low blood pressure she was brought to the hospital. At this time, she feels much better. Past Medical History Past Medical History: Hyperlipidemia, Hypertension Additional Past Medical History / Comment(s): Went into afib a couple times after surgeries, just got over shingles after a 14 day cycle of Acyclovir, possible trigeminenal neuralgia, diagnosed with a kidney stone one day before admission with one dose of Cipro and one dose of Flomax prior to admission, glaucoma, "a touch of macular degeneration" History of Any Multi-Drug Resistant Organisms: None Reported Past Surgical History: Coronary Bypass/CABG, Hysterectomy, Pacemaker, Tonsillectomy Additional Past Surgical History / Comment(s): Aortic aneurysm repair in 2010, knee replacement 2013 left knee, hysterectomy 1991, right knee orthoscopic repair 1979, pacemaker inserted around 2007 Past Anesthesia/Blood Transfusion Reactions: No Reported Reaction Type of Cardiac Device: Permanent Pacemaker Device Placement Date:: 2007 Past Psychological History: No Psychological Hx Reported Smoking Status: Never smoker Past Alcohol Use History: None Reported Past Drug Use History: None Reported - Past Family History Father Additional Family Medical History / Comment(s): Arterial sclerosis, cardiomegaly Mother Additional Family Medical History / Comment(s): Macular degeneration Medications and Allergies Home Medications Medication Instructions Recorded Confirmed Type Simvastatin [Zocor] 20 mg PO HS 03/30/15 07/10/22 History Sotalol [Betapace] 120 mg PO DAILY 03/30/15 07/10/22 History Ciprofloxacin HCl [Cipro] 500 mg PO BID 07/10/22 07/10/22 History Ibuprofen [Motrin] 800 mg PO Q8H PRN 07/10/22 07/10/22 History Latanoprost Ophth [Xalatan 0.005%] 1 drop BOTH EYES HS 07/10/22 07/10/22 History Losartan Potassium 100 mg PO DAILY 07/10/22 07/10/22 History Sotalol [Betapace] 80 mg PO HS 07/10/22 07/10/22 History Tamsulosin HCl [Flomax] 0.4 mg PO DAILY 07/10/22 07/10/22 History Vit C/E/Zn/Coppr/Lutein/Zeaxan 1 cap PO BID 07/10/22 07/10/22 History [Preservision Areds 2 Softgel] amLODIPine [Norvasc] 5 mg PO HS 07/10/22 07/10/22 History Allergies Allergy/AdvReac Type Severity Reaction Status Date / Time Iodinated Contrast Media Allergy Rash/Hives Verified 07/10/22 14:15 [Iodinated Contrast Media - IV Dye] lisinopril AdvReac Cough Verified 07/10/22 14:15 Surgical - Exam Vital Signs Temp Pulse Resp BP Pulse Ox 98.4 F 83 18 87/65 96 07/09/22 23:46 07/09/22 23:46 07/09/22 23:46 07/09/22 23:46 07/09/22 23:46 Pleasant cooperative elderly female in no acute distress. Heart appears regular. Lungs are clear. Abdomen soft. Extremity are clean, dry, no significant edema. Warm. Results CT chest abdomen and pelvis is reviewed. No evidence of malperfusion - Labs 07/10/22 18:34 07/10/22 18:34 Abnormal Lab Results - Last 24 Hours (Table) 07/10/22 07/10/22 Range/Units 18:34 18:34 WBC 24.9 H (3.8-10.6) k/uL RDW 15.7 H (11.5-15.5) % Sodium 131 L (137-145) mmol/L Chloride 97 L (98-107) mmol/L BUN 29 H (7-17) mg/dL Glucose 117 H (74-99) mg/dL Calcium 8.2 L (8.4-10.2) mg/dL Total Protein 5.6 L (6.3-8.2) g/dL Albumin 3.2 L (3.5-5.0) g/dL Diabetes panel 07/10/22 Range/Units 18:34 Sodium 131 L (137-145) mmol/L Potassium 3.6 (3.5-5.1) mmol/L Chloride 97 L (98-107) mmol/L Carbon Dioxide 27 (22-30) mmol/L BUN 29 H (7-17) mg/dL Creatinine 0.91 (0.52-1.04) mg/dL Glucose 117 H (74-99) mg/dL Calcium 8.2 L (8.4-10.2) mg/dL AST 22 (14-36) U/L ALT 22 (4-34) U/L Alkaline Phosphatase 53 (38-126) U/L Total Protein 5.6 L (6.3-8.2) g/dL Albumin 3.2 L (3.5-5.0) g/dL Calcium panel 07/10/22 Range/Units 18:34 Calcium 8.2 L (8.4-10.2) mg/dL Albumin 3.2 L (3.5-5.0) g/dL Pituitary panel 07/10/22 Range/Units 18:34 Sodium 131 L (137-145) mmol/L Potassium 3.6 (3.5-5.1) mmol/L Chloride 97 L (98-107) mmol/L Carbon Dioxide 27 (22-30) mmol/L BUN 29 H (7-17) mg/dL Creatinine 0.91 (0.52-1.04) mg/dL Glucose 117 H (74-99) mg/dL Calcium 8.2 L (8.4-10.2) mg/dL Adrenal panel 07/10/22 Range/Units 18:34 Sodium 131 L (137-145) mmol/L Potassium 3.6 (3.5-5.1) mmol/L Chloride 97 L (98-107) mmol/L Carbon Dioxide 27 (22-30) mmol/L BUN 29 H (7-17) mg/dL Creatinine 0.91 (0.52-1.04) mg/dL Glucose 117 H (74-99) mg/dL Calcium 8.2 L (8.4-10.2) mg/dL Total Bilirubin 0.7 (0.2-1.3) mg/dL AST 22 (14-36) U/L ALT 22 (4-34) U/L Alkaline Phosphatase 53 (38-126) U/L Total Protein 5.6 L (6.3-8.2) g/dL Albumin 3.2 L (3.5-5.0) g/dL Assessment and Plan Assessment: Descending thoracic aortic dissection with thrombosis of the false lumen Ascending and arch aortic aneurysm Descending thoracic aorta aneurysm Advanced age Recent shingles Recent kidney stone Plan: I had the pleasure of seeing Destiny and her family. Long discussion regarding her images in the implications of. We had a long discussion regarding the repair options should it become emergent and requiring transfer however given her advanced age, this is not something she would be interested in undergoing. Due to this we then also discussed possibly changes and CODE STATUS and with the family at the bedside the overarching conversation was that she would like to be no code. This will be discussed with her primary team. From my standpoint again there is no end organ malperfusion at this time there is no need for transfer vascular surgical intervention.
[2022-07-11 10:12] LABS: Albumin 3.2 g/dL (3.5-5.0); Calcium 8.5 mg/dL (8.4-10.2); Potassium 3.2 mmol/L (3.5-5.1); Total Bilirubin 0.6 mg/dL (0.2-1.3); Total Protein 5.7 g/dL (6.3-8.2)
[2022-07-11] MEDS ORDERED: Potassium Replacement Protocol 1 EACH MISC MISCELLANE PRN (10:20)
--- NOTE | 2022-07-11 10:35 | P.PN ---
Subjective Progress Note Date: 07/11/22 Destiny Meléndez, is an 86-year-old female who presented to [facility] emergency room after having a syncopal episode, per emergency room report, patient had syncope at home, EMS were called and patient was hypotensive. She was evaluated in the emergency room vital examination on presentation revealed a temperature of 98.4 pulse 83 respiration 18 blood pressure 87/65 pulse ox 96% on 3 L nasal cannula Laboratory data revealed a white blood count of 10.7 hemoglobin 13.8 platelet count 152 d-dimer 19.5 sodium 131 potassium 3.4 BUN 20 creatinine 0.68 urine analysis revealed evidence of urinary tract infection Testing in the emergency room revealed computed tomography scan of the brain was done without contrast in the emergency room and revealed no acute intracranial process, and nonspecific white matter changes likely secondary to chronic small vessel ischemic disease, chest x-ray was done in the emergency room and revealed no acute cardiopulmonary process, and prominent mediastinal. CT angiogram of the chest was done in emergency room and revealed no evidence of pulmonary embolism however there was evidence of descending thoracic Aortic dissection, which is new from prior study and the false lumen is thrombosed and aneurysmally dilated Tatian of the distal ascending thoracic aorta and aortic arch measuring up to 6.6 cm. Emergency room physician attempted to transfer patient to [facility], computed tomography scan pictures were transmitted to [facility], however they advised that there is no need for any surgical intervention, and patient should be treated medically, emergency room physician also attempted to transfer patient to [facility] where she is known to the cardiology team, however [facility] declined to transfer, and patient will be admitted to our hospital with cardiology consultation, family is aware of condition and are agreeable to admission to our hospital. Patient was admitted to telemetry floor for further evaluation and treatment Past medical history is significant for history of hypertension, history of hyperlipidemia, previous history of aortic aneurysm repair, underlying history of coronary artery disease with history of coronary artery bypass graft surgery, underlying history of cardiac arrhythmia was previous history of pacemaker placement recent diagnosis of herpes zoster, on the face, patient completed her course of Valtrex, recent diagnosis of urinary tract infection with kidney stone, patient was recently started on Cipro and Flomax. Patient daughter at the bedside stated that patient had the syncopal episode one hour after receiving Flomax. On review of systems at this time patient is alert and oriented 3 in no apparent distress there is no fever or chills no headache or dizziness no chest pain no shortness of breath no cough no nausea or vomiting no abdominal pain no diarrhea no blood in the stools no burning with urination no frequency or urgency and no hematuria, there is no weakness or numbness in any of the extremities, there is no change in vision speech or gait per patient. On 07/11/2022 patient is alert and oriented 3 family at bedside. Patient was evaluated by Dr. Wolff with vascular surgery. It was determined that she would not undergo any kind of surgical intervention and no need to transfer for vascular surgical intervention. Patient remains on IV Rocephin for UTI. Current vital signs temp 97.8, heart rate 57, blood pressure 110/72 with a pulse ox 94%. Awaiting any further conditions from cardiology standpoint. Family also requesting PT evaluation. Per family and patient she would like to be a no code Objective - Vital Signs Vital signs: Vital Signs Temp 97.8 F 07/11/22 07:49 Pulse 57 L 07/11/22 07:49 Resp 16 07/11/22 07:49 BP 110/72 07/11/22 07:49 Pulse Ox 94 L 07/11/22 07:49 FiO2 Intake & Output 07/10/22 07/11/22 07/11/22 18:59 06:59 18:59 Intake Total 236 Balance 236 Weight 49.895 kg Intake: Oral 236 Other: Voiding Method Bedside Commode Bedside Commode # Voids 1 1 - Exam In general patient is alert and oriented x 3 in no distress HEENT head normocephalic and atraumatic Neck is supple no JVD no goiter no lymphadenopathy no carotid bruit Chest examination is clear to auscultation no crackles no wheezing Cardiac exam reveals regular heart sounds S1 and S2 no gallops, there is a 2/6 systolic murmur best heard in the left sternal border Abdomen is soft nontender no organomegaly with normal bowel sounds Extremity exam reveals no edema no cyanosis or clubbing Neurological examination reveals no gross focal deficits - Labs CBC & Chem 7: 07/11/22 08:08 07/11/22 08:08 Labs: Abnormal Lab Results - Last 24 Hours (Table) 07/10/22 07/10/22 07/11/22 Range/Units 18:34 18:34 08:08 WBC 24.9 H 19.1 H (3.8-10.6) k/uL RDW 15.7 H 16.2 H (11.5-15.5) % Neutrophils # 17.3 H (1.3-7.7) k/uL Sodium 131 L (137-145) mmol/L Potassium (3.5-5.1) mmol/L Chloride 97 L (98-107) mmol/L BUN 29 H (7-17) mg/dL Glucose 117 H (74-99) mg/dL Calcium 8.2 L (8.4-10.2) mg/dL Total Protein 5.6 L (6.3-8.2) g/dL Albumin 3.2 L (3.5-5.0) g/dL 07/11/22 Range/Units 08:08 WBC (3.8-10.6) k/uL RDW (11.5-15.5) % Neutrophils # (1.3-7.7) k/uL Sodium 134 L (137-145) mmol/L Potassium 3.2 L (3.5-5.1) mmol/L Chloride 96 L (98-107) mmol/L BUN 30 H (7-17) mg/dL Glucose 128 H (74-99) mg/dL Calcium (8.4-10.2) mg/dL Total Protein 5.7 L (6.3-8.2) g/dL Albumin 3.2 L (3.5-5.0) g/dL Assessment and Plan Assessment: Episode of syncope, lasting about 45 seconds Evidence of descending thoracic aortic dissection which is new from prior study and evidence of aneurysmal bilateral patient of the distal ascending aorta. Patient was evaluated by vascular surgery is determined that no surgical intervention would be performed Evidence of urinary tract infection Recent diagnosis of kidney stone patient was started on oral Flomax as outpatient Known history of hypertension Known history of hyperlipidemia Previous history of aortic aneurysm repair Underlying history of coronary artery disease with history of coronary artery bypass graft surgery Underlying history of cardiac arrhythmia with history of pacemaker placement At this time patient was seen and examined She will be admitted to telemetry floor Cardiology consultation was requested 2-D echo completed showing EF of 55-60% Carotid Doppler completed showing no ultrasound evidence for hemodynamically significant stenosis for urinary tract infection patient will be started on IV ceftriaxone Urine culture ordered Will check kidney ultrasound to assess recent diagnosis of kidney stones PT OT services consulted Will follow closely
[2022-07-11] MEDS ORDERED: POTASSIUM CHLORIDE ER 20 MEQ TAB.ER PO SCH (11:00)
[2022-07-11] MEDS: POTASSIUM CHLORIDE ER 20 MEQ TAB.ER PO SCH ×2 (12:05→12:37)
[2022-07-11] MEDS ORDERED: POTASSIUM BICARBONATE/CIT AC 20 MEQ TABLET.EFF PO ONE (13:00)
--- NOTE | 2022-07-11 13:17 | P.PN ---
Subjective Progress Note Date: 07/11/22 HISTORY OF PRESENTING ILLNESS Patient is a pleasant 86-year-old female with a history of hypertension, hyp erlipidemia, aortic aneurysm status post prior aortic aneurysm repair which has been monitored by Dr. Leavitt. Unfortunately she had shingles involving her left eye and had been taking Valtrex and had slowly been getting over the Valtrex however third-degree developed lower abdominal pain. She was prescribed antibiotics, Motrin for a kidney stone. She started having worsening episode of nausea, upset stomach and feeling somewhat lightheaded. Daughter had checked blood pressure was in the 80s over 50s which normally isn't more in the 110s. Family urged her to go to the emergency department however in the meantime she gone to the bathroom and had a syncopal episode. She was unresponsive sitting up in the bathroom and daughter who is a nurse felt this was likely vasovagal episode and brought her to the floor and patient slowly came to within 30-40 seconds. Patient brought to the emergency department and CT brain showed no acute process, CTA thorax showed descending thoracic aortic dissection with 2 and pulse lumen measuring 6.5 cm as well as a aortic arch aneurysm 6.6 cm. There is mention of a kink in the ascending aorta. 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 EKG showed sinus rhythm with ventricular paced rhythm. 07/11 A/ox3, sitting up on edge of bed, in no acute distress. She denies any chest pain or shortness of breath. No back pain or abdominal pain. She was ambulatory in the hallway. No dizziness. Blood pressure controlled. She would like to go home. Echocardiogram revealed EF 5560%, RVSP elevated at 57, mild mitral regurgitation, moderate aortic stenosis, moderate tricuspid regurgitation. PHYSICAL EXAMINATION Vital signs reviewed. CONSTITUTIONAL: No apparent distress. HEENT: Head is normocephalic. Pupils are equal, round. Sclerae anicteric. Mucous membranes of the mouth are moist. No JVD. No carotid bruit. CHEST EXAMINATION: Lungs are clear to auscultation. No chest wall tenderness is noted on palpation or with deep breathing. HEART EXAMINATION: Regular rate and rhythm. S1, S2 heard. No murmurs, gallops or rub. ABDOMEN: Soft, nontender. Positive bowel sounds. EXTREMITIES: 2+ peripheral pulses, no lower extremity edema and no calf tenderness. NEUROLOGIC EXAMINATION: Patient is awake, alert and oriented x3. ASSESSMENT 1. Syncope, likely vasovagal with patient on the toilet and in pain 2. Hypotension, possibly related to dissection 3. Descending aortic dissection, type B 4. History of aortic aneurysm with prior aortic aneurysm repair 5. Status post permanent pacemaker 6. Moderate aortic stenosis PLAN ECHO reviewed. Currently patient appears stable. Vascular surgery not planning for any intervention. Aggressive blood pressure control however has been borderline hypotensive. Continue supportive care, prognosis guarded. Request prior records from Dr. Leavitt, [facility]. Monitor blood pressure at home twice a day and it consistently >130-140's [address] Dr. Leavitt for blood pressure management. Follow up with Dr. Leavitt outpatient. OK to ak home from cardiology standpoint. Objective - Vital Signs Vital signs: Vital Signs Temp 97.8 F 07/11/22 07:49 Pulse 57 L 07/11/22 07:49 Resp 16 07/11/22 07:49 BP 110/72 07/11/22 07:49 Pulse Ox 94 L 07/11/22 07:49 FiO2 Intake & Output 07/10/22 07/11/22 07/11/22 18:59 06:59 18:59 Intake Total 236 Balance 236 Weight 49.895 kg Intake: Oral 236 Other: Voiding Method Bedside Commode Bedside Commode # Voids 1 1 - Labs CBC & Chem 7: 07/11/22 08:08 07/11/22 08:08 Labs: Abnormal Lab Results - Last 24 Hours (Table) 07/10/22 07/10/22 07/11/22 Range/Units 18:34 18:34 08:08 WBC 24.9 H 19.1 H (3.8-10.6) k/uL RDW 15.7 H 16.2 H (11.5-15.5) % Neutrophils # 17.3 H (1.3-7.7) k/uL Sodium 131 L (137-145) mmol/L Potassium (3.5-5.1) mmol/L Chloride 97 L (98-107) mmol/L BUN 29 H (7-17) mg/dL Glucose 117 H (74-99) mg/dL Calcium 8.2 L (8.4-10.2) mg/dL Total Protein 5.6 L (6.3-8.2) g/dL Albumin 3.2 L (3.5-5.0) g/dL 07/11/22 Range/Units 08:08 WBC (3.8-10.6) k/uL RDW (11.5-15.5) % Neutrophils # (1.3-7.7) k/uL Sodium 134 L (137-145) mmol/L Potassium 3.2 L (3.5-5.1) mmol/L Chloride 96 L (98-107) mmol/L BUN 30 H (7-17) mg/dL Glucose 128 H (74-99) mg/dL Calcium (8.4-10.2) mg/dL Total Protein 5.7 L (6.3-8.2) g/dL Albumin 3.2 L (3.5-5.0) g/dL
[2022-07-11] MEDS: SOTALOL 80 MG TAB PO SCH (20:00)
[2022-07-11] MEDS: ATORVASTATIN 10 MG TAB PO SCH (20:00)
[2022-07-11] MEDS: LATANOPROST 0.005% OPHTH DROPS 2.5 ML BTL BOTH EYES SCH (20:01)
[2022-07-11] MEDS: LOSARTAN 50 MG TAB PO SCH (21:08)
[2022-07-11] MEDS: amLODIPine 5 MG TAB PO SCH (22:24)
[2022-07-12 08:34] VITALS: BP 126/77; PULSE 60; RESP 18; TEMP 97.8
[2022-07-12] MEDS: amLODIPine 5 MG TAB PO SCH (08:37)
[2022-07-12] MEDS: MULTIVITAMINS, THERA 1 EACH TAB PO SCH (08:37)
[2022-07-12] MEDS: SOTALOL 120 MG TAB PO SCH (08:37)
[2022-07-12] MEDS: LOSARTAN 50 MG TAB PO SCH (08:37)
[2022-07-12 08:44] LABS: Basophils % (A) 0 %; Eosinophils # (A) 0.1 k/uL (0-0.7); Eosinophils % (A) 0 %; HCT 42.9 % (34.0-46.0); Lymphocytes % (A) 9 %; MCH 29.2 pg (25.0-35.0); MCHC 32.5 g/dL (31.0-37.0); MCV 89.6 fL (80.0-100.0); Mean Platelet Volume 7.9; Monocytes # (A) 0.5 k/uL (0-1.0); Monocytes % (A) 4 %; Neutrophils # (A) 9.5 k/uL (1.3-7.7); Neutrophils % (A) 85 %; Platelet Count 173 k/uL (150-450); RBC 4.79 m/uL (3.80-5.40); RDW 15.8 % (11.5-15.5); WBC 11.1 k/uL (3.8-10.6)
[2022-07-12 08:58] LABS: ALT 37 U/L (4-34); AST 31 U/L (14-36); African American GFR (CKD) >90 (>60 ml/min/1.73 sqM); Albumin 3.2 g/dL (3.5-5.0); Alkaline Phosphatase 67 U/L (38-126); Anion Gap 5 mmol/L; Blood Urea Nitrogen 22 mg/dL (7-17); Calcium 8.7 mg/dL (8.4-10.2); Carbon Dioxide 31 mmol/L (22-30); Chloride 100 mmol/L (98-107); Glucose 155 mg/dL (74-99); Non-African American GFR(CKD) 81 (>60 ml/min/1.73 sqM); Potassium 4.2 mmol/L (3.5-5.1); Sodium 136 mmol/L (137-145); Total Bilirubin 0.7 mg/dL (0.2-1.3); Total Protein 5.7 g/dL (6.3-8.2)
--- NOTE | 2022-07-12 09:56 | P.DS ---
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 Patient was evaluated by vascular surgery is determined that no surgical intervention would be performed Evidence of urinary tract infection Recent diagnosis of kidney stone patient was started on oral Flomax as outpatient Known history of hypertension Known history of hyperlipidemia Previous history of aortic aneurysm repair Underlying history of coronary artery disease with history of coronary artery bypass graft surgery Underlying history of cardiac arrhythmia with history of pacemaker placement Hospital course Destiny Meléndez, is an 86-year-old female who presented to [facility] emergency room after having a syncopal episode, per emergency room report, patient had syncope at home, EMS were called and patient was hypotensive. She was evaluated in the emergency room vital examination on presentation revealed a temperature of 98.4 pulse 83 respiration 18 blood pressure 87/65 pulse ox 96% on 3 L nasal cannula Laboratory data revealed a white blood count of 10.7 hemoglobin 13.8 platelet count 152 d-dimer 19.5 sodium 131 potassium 3.4 BUN 20 creatinine 0.68 urine analysis revealed evidence of urinary tract infection Testing in the emergency room revealed computed tomography scan of the brain was done without contrast in the emergency room and revealed no acute intracranial process, and nonspecific white matter changes likely secondary to chronic small vessel ischemic disease, chest x-ray was done in the emergency room and revealed no acute cardiopulmonary process, and prominent mediastinal. CT angiogram of the chest was done in emergency room and revealed no evidence of pulmonary embolism however there was evidence of descending thoracic Aortic dissection, which is new from prior study and the false lumen is thrombosed and aneurysmally dilated Tatian of the distal ascending thoracic aorta and aortic arch measuring up to 6.6 cm. Emergency room physician attempted to transfer patient to [facility], computed tomography scan pictures were transmitted to [facility], however they advised that there is no need for any surgical intervention, and patient should be treated medically, emergency room physician also attempted to transfer patient to [facility] where she is known to the cardiology team, however [facility] declined to transfer, and patient will be admitted to our hospital with cardiology consultation, family is aware of condition and are agreeable to admission to our hospital. Patient was admitted to telemetry floor for further evaluation and treatment Past medical history is significant for history of hypertension, history of hyperlipidemia, previous history of aortic aneurysm repair, underlying history of coronary artery disease with history of coronary artery bypass graft surgery, underlying history of cardiac arrhythmia was previous history of pacemaker placement recent diagnosis of herpes zoster, on the face, patient completed her course of Valtrex, recent diagnosis of urinary tract infection with kidney stone, patient was recently started on Cipro and Flomax. Patient daughter at the bedside stated that patient had the syncopal episode one hour after receiving Flomax. On review of systems at this time patient is alert and oriented 3 in no apparent distress there is no fever or chills no headache or dizziness no chest pain no shortness of breath no cough no nausea or vomiting no abdominal pain no diarrhea no blood in the stools no burning with urination no frequency or urgency and no hematuria, there is no weakness or numbness in any of the extremities, there is no change in vision speech or gait per patient. On 07/11/2022 patient is alert and oriented 3 family at bedside. Patient was evaluated by Dr. Wolff with vascular surgery. It was determined that she would not undergo any kind of surgical intervention and no need to transfer for vascular surgical intervention. Patient remains on IV Rocephin for UTI. Current vital signs temp 97.8, heart rate 57, blood pressure 110/72 with a pulse ox 94%. Awaiting any further conditions from cardiology standpoint. Family also requesting PT evaluation. Per family and patient she would like to be a no code On 07/12/2022 patient is alert and oriented 3 patient has been cleared for discharge from vascular surgery and cardiology services. Patient was restarted back on Norvasc and Cozaar last night blood pressure remains stable. Patient instructed per cardiology to monitor blood pressure twice daily and follow-up with her gunstock repairer for further management. Patient also had abdominal ultrasound completed showing mild right hydronephrosis versus pelvictasis. Patient will be DC'd on Ceftin for one week for urinary tract infection. Recommendations to follow up outpatient with urology services for further management. At this time patient denies chest pain or shortness breath. Patie nt denies nausea vomiting or diarrhea. Patient denies any urinary burning or frequency. Current vital signs temp 97.8, heart rate 60, respiratory rate 18, blood pressure 126/77 with pulse ox 96% on room air Patient Condition at Discharge: Stable Plan - Discharge Summary Discharge Rx Participant: Yes New Discharge Prescriptions: New Cefuroxime [Ceftin] 250 mg PO BID 7 Days #14 tab Continue Sotalol [Betapace] 120 mg PO DAILY Simvastatin [Zocor] 20 mg PO HS amLODIPine [Norvasc] 5 mg PO HS Sotalol [Betapace] 80 mg PO HS Vit C/E/Zn/Coppr/Lutein/Zeaxan [Preservision Areds 2 Softgel] 1 cap PO BID Losartan Potassium 100 mg PO DAILY Latanoprost Ophth [Xalatan 0.005%] 1 drop BOTH EYES HS Ibuprofen [Motrin] 800 mg PO Q8H PRN PRN Reason: Pain Discontinued Ciprofloxacin HCl [Cipro] 500 mg PO BID Tamsulosin HCl [Flomax] 0.4 mg PO DAILY Discharge Medication List Simvastatin [Zocor] 20 mg PO HS 03/30/15 [History] Sotalol [Betapace] 120 mg PO DAILY 03/30/15 [History] Ibuprofen [Motrin] 800 mg PO Q8H PRN 07/10/22 [History] Latanoprost Ophth [Xalatan 0.005%] 1 drop BOTH EYES HS 07/10/22 [History] Losartan Potassium 100 mg PO DAILY 07/10/22 [History] Sotalol [Betapace] 80 mg PO HS 07/10/22 [History] Vit C/E/Zn/Coppr/Lutein/Zeaxan [Preservision Areds 2 Softgel] 1 cap PO BID 07/10/22 [History] amLODIPine [Norvasc] 5 mg PO HS 07/10/22 [History] Cefuroxime [Ceftin] 250 mg PO BID 7 Days #14 tab 07/12/22 [Rx] Follow up Appointment(s)/Referral(s): Peggy Suggs MD [Primary Care Provider] - 1-2 days Alexander Lozano MD [STAFF PHYSICIAN] - 1 Week Activity/Diet/Wound Care/Special Instructions: activity as tolerated Diet heart healthy Per cardiology recommended continuing monitoring blood pressure twice daily at home and it blood pressure consistently stays 130s to 140s to notify patient's gunstock repairer Dr. Leavitt Discharge Disposition: HOME SELF-CARE
[2022-07-12] MEDS ORDERED: ONDANSETRON 4 MG TAB PO ONE (11:30)
--- NOTE | 2022-07-12 11:46 | P.PN ---
Subjective Progress Note Date: 07/12/22 HISTORY OF PRESENT ILLNESS: Patient is a pleasant 86-year-old female with a history of hypertension, hyperlipidemia, aortic aneurysm status post prior aortic aneurysm repair which h as been monitored by Dr. Leavitt. Unfortunately she had shingles involving her left eye and had been taking Valtrex and had slowly been getting over the Valtrex however third-degree developed lower abdominal pain. She was prescribed antibiotics, Motrin for a kidney stone. She started having worsening episode of nausea, upset stomach and feeling somewhat lightheaded. Daughter had checked blood pressure was in the 80s over 50s which normally isn't more in the 110s. Family urged her to go to the emergency department however in the meantime she gone to the bathroom and had a syncopal episode. She was unresponsive sitting up in the bathroom and daughter who is a nurse felt this was likely vasovagal episode and brought her to the floor and patient slowly came to within 30-40 seconds. Patient brought to the emergency department and CT brain showed no acute process, CTA thorax showed descending thoracic aortic dissection with 2 and pulse lumen measuring 6.5 cm as well as a aortic arch aneurysm 6.6 cm. There is mention of a kink in the ascending aorta. 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 EKG showed sinus rhythm with ventricular paced rhythm. 07/11 A/ox3, sitting up on edge of bed, in no acute distress. She denies any chest pain or shortness of breath. No back pain or abdominal pain. She was ambulatory in the hallway. No dizziness. Blood pressure controlled. She would like to go home. Echocardiogram revealed EF 5560%, RVSP elevated at 57, mild mitral regurgitation, moderate aortic stenosis, moderate tricuspid regurgitation. 07/12/2022 Patient examined this morning. Patient is sitting up in the chair. Patient denies chest pain or pressure. She denies shortness of breath. Vital signs are stable. She is hoping to be discharged home today. PHYSICAL EXAM: VITAL SIGNS: Reviewed. GENERAL: Well-developed in no acute distress. NECK: Supple. No JVD or thyromegaly LUNGS: Respirations even and unlabored. Lungs essentially clear to auscultation bilaterally. HEART: Regular rate and rhythm. S1 and S2 heard. + systolic murmur. EXTREMITIES: Normal range of motion. No clubbing or cyanosis. Peripheral pulses intact. 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 Patient's daughter states that she has a history of atrial fibrillation however she has not been on anticoagulation in the past. The reason for this is unknown. Patient to follow-up with her primary finance analyst and may discuss anticoagulation with him at that time Patient stable for discharge home today from a cardiac standpoint Nurse practitioner note has been reviewed by physician. Signing provider agrees with the documented findings, assessment, and plan of care. Objective - Vital Signs Vital signs: Vital Signs Temp 97.8 F 07/12/22 08:00 Pulse 60 07/12/22 08:00 Resp 18 07/12/22 08:00 BP 126/77 07/12/22 08:00 Pulse Ox 96 07/12/22 08:00 FiO2 Intake & Output 07/11/22 07/12/22 07/12/22 18:59 06:59 18:59 Intake Total 678 118 Balance 678 118 Intake: Oral 678 118 Other: Voiding Method Toilet Toilet Bedside Commode Bedside Commode # Voids 2 2 # Bowel Movements 1 - Labs CBC & Chem 7: 07/12/22 08:17 07/12/22 08:17 Labs: Abnormal Lab Results - Last 24 Hours (Table) 07/12/22 07/12/22 Range/Units 08:17 08:17 WBC 11.1 H (3.8-10.6) k/uL RDW 15.8 H (11.5-15.5) % Neutrophils # 9.5 H (1.3-7.7) k/uL Sodium 136 L (137-145) mmol/L Carbon Dioxide 31 H (22-30) mmol/L BUN 22 H (7-17) mg/dL Glucose 155 H (74-99) mg/dL ALT 37 H (4-34) U/L Total Protein 5.7 L (6.3-8.2) g/dL Albumin 3.2 L (3.5-5.0) g/dL
== END 2022-07-12 12:26 | disposition home or self-care (01) | DRG 300 ==
LOC: EC 23:43 → 3SCARD 07-10 05:23
PROVIDERS: ADMIT Internal Medicine; ATTEND Internal Medicine
PROC: B246ZZ4 Ultrasonography of Right and Left Heart, Transesophageal (ICD-10-PCS; principal; 2022-07-10)
DX: I71.012 Dissection of descending thoracic aorta (principal); N39.0 Urinary tract infection, site not specified; I95.9 Hypotension, unspecified; I48.0 Paroxysmal atrial fibrillation; Z95.0 Presence of cardiac pacemaker; I25.10 Atherosclerotic heart disease of native coronary artery without angina pectoris; I10 Essential (primary) hypertension; Z87.19 Personal history of other diseases of the digestive system; I08.2 Rheumatic disorders of both aortic and tricuspid valves; N20.0 Calculus of kidney; B02.9 Zoster without complications; I71.21 Aneurysm of the ascending aorta, without rupture; Z79.82 Long term (current) use of aspirin; E78.5 Hyperlipidemia, unspecified; Z79.899 Other long term (current) drug therapy; Z86.79 Personal history of other diseases of the circulatory system; Z87.442 Personal history of urinary calculi; Z90.710 Acquired absence of both cervix and uterus; Z95.1 Presence of aortocoronary bypass graft; Z96.651 Presence of right artificial knee joint; Z91.041 Radiographic dye allergy status; Z88.8 Allergy status to other drugs, medicaments and biological substances
CPT/HCPCS: 36415; 70450; 71045; 71275; 76770; 80053; 81001; 83690; 83735; 84484; 85025; 85027; 85379; 85610; 85730; 93005; 93306; 93880; 96365; 96375; 99291; 99292